=== PATIENT | male | born 1930 | race Caucasian/White ===

== ENCOUNTER → 2017-01-04 | Outpatient (CLI) | payer MEDICARE, OTHER ==
[~2017-01-04] MED LIST: ADV250-14 INH; ALBU2.5V12 INH; ALBU2.5V4 INH; ALBU8.5H4 IH; AMOX1TAB12 PO; APIX2.5T2 PO; APIX5TAB PO; ASCO10006 PO; ASPI-586 PO; ASPI325T4; AZIT250T5 PO; AZTH250C PO; CALC-685 PO; CALC300T10 PO; CEFD300C PO; DICL100G13 TOP; DOCU100C8 PO; DOXY100C42 PO; ESCI10TA49 PO; FAMO20TA13 PO; FLUT16SP NSEACH; GUAI400T PO; HYDR-3811 PO; INDA1.25 PO; IPRA3AMP11 INH; IPRA4AER IH; LD5PT TOP; LEVO500T80 PO; LISI5TAB14 PO; LSNP20T PO; MAGN400O7 PO; MNTL10T PO; MULT-954 PO; OMEP20TA33; OMEP20TA33 PO; POLY17PO6 PO; PRAM0.5T9 PO; PRCD5U PO; PRD20T PO; PRM25T PO; QTP25T PO; TAMS0.4C2 PO; TIOT4MIS2 INH; TRM50T PO; [UNRECOGNIZED DRUG - CODE] PO
== END ==
LOC: LAB 17:00 → EDSTATUS 01-06 13:03
PROVIDERS: ATTEND Family Medicine
DX: R19.7 Diarrhea, unspecified (principal)
CPT/HCPCS: 87324; 87449